=== PATIENT | male | born 1960 | race Caucasian/White ===

== ENCOUNTER → 2016-12-09 | Outpatient (CLI) | payer BC ==
[~2016-12-09] MED LIST: ASPI81TA28 PO; ATOR-22 PO; CLOP1TAB15 PO; COEN100C11 PO; CYAN10005 PO; FENO48TA9 PO; GLC/500 PO; GLIM1TAB2 PO; LISI-729 PO; LISI5TAB3 PO; METO50TA16 PO; RANI300T2 PO
--- NOTE | 2016-12-09 10:43 | DIAGNOSTIC IMAGING REPORT ---
LUMBAR ULTRASOUND SOFT TISSUE CLINICAL HISTORY: M54.5 Lumbar painM79.9 Soft tissue mass COMPARISON STUDY: Abdomen and pelvis CT 07/30/2016. FINDINGS: Real-time sonographic imaging of the lumbar region at the patient's area of interest was performed. No fluid collections or masses identified. Small linear echogenic area consistent with the site of prior incision. IMPRESSION: No sonographic abnormality within the lumbar region. Electronically signed by: Ajay Resendiz M.D. 12/09/2016 10:41 AM Dictated Date/Time: 12/09/2016 10:40 AM
== END | disposition home or self-care (01) ==
LOC: C.ULTR 10:03
PROVIDERS: ATTEND Physician Assistant Medical
DX: M54.5 Low back pain (principal); M79.9 Soft tissue disorder, unspecified

== ENCOUNTER → 2016-12-30 | Outpatient (CLI) | payer BC ==
[2016-12-30 12:20] LABS: HEMATOCRIT 41.6 % (42-52); MEAN CELL VOLUME 87.8 fL (80-100); MEAN CORPUSCULAR HEMOGLOBIN 29.7 pg (25-34); MEAN CORPUSCULAR HGB CONC 33.9 g/dl (32-36); MEAN PLATELET VOLUME 12.4 fL (7.4-10.4); PLATELET COUNT 178 K/uL (130-400); RED BLOOD COUNT 4.74 M/uL (4.7-6.1); WHITE BLOOD COUNT 8.24 K/uL (4.8-10.8)
[2016-12-30 12:44] LABS: ALB/GLOB RATIO 1.2 (0.9-2); ALKALINE PHOSPHATASE 83 U/L (45-117); ALT/SGPT 37 U/L (12-78); AST/SGOT 25 U/L (15-37); BLOOD UREA NITROGEN 17 mg/dl (7-18); BUN/CREATININE RATIO 13.1 (10-20); CARBON DIOXIDE 26 mmol/L (21-32); CHLORIDE 110 mmol/L (98-107); GLUCOSE 94 mg/dl (70-99); POTASSIUM 4.3 mmol/L (3.5-5.1); SODIUM 143 mmol/L (136-145)
[2016-12-30 12:53] LABS: ESTIMATED AVERAGE GLUCOSE 131 mg/dl; HA1C FLAG Normal (Normal)
[2016-12-30 12:56] LABS: CHOLESTEROL 146 mg/dl (0-200); CHOLESTEROL/HDL RATIO 3.7; HDL CHOLESTEROL 39 mg/dl; LDL CHOLESTEROL CALCULATED 69 mg/dl; TRIGLYCERIDES 189 mg/dl (0-150); VERY LOW DENSITY LIPOPROT CALC 38 mg/dl
== END | disposition home or self-care (01) ==
LOC: C.LAB1850 10:02
PROVIDERS: ATTEND Internal Medicine Cardiovascular Disease
DX: E11.9 Type 2 diabetes mellitus without complications (principal); I25.10 Atherosclerotic heart disease of native coronary artery without angina pectoris; E78.5 Hyperlipidemia, unspecified; I10 Essential (primary) hypertension; R00.2 Palpitations

== ENCOUNTER → 2017-01-22 | Outpatient (CLI) | payer BC ==
[~2017-01-22] VITALS: Ht 176.5 cm; Wt 104.1 kg
[~2017-01-22] MED LIST changes: -LISI5TAB3 PO
[2017-01-22 12:59] VITALS: BP 130/80; PULSE 81; Ht 176.5 cm; Wt 104.1 kg
== END | disposition home or self-care (01) ==
LOC: C.NEUR 12:15
PROVIDERS: ATTEND Physician Assistant
DX: G47.33 Obstructive sleep apnea (adult) (pediatric) (principal)

== ENCOUNTER → 2017-11-30 | Outpatient (CLI) | payer BC ==
[2017-11-30 09:35] LABS: HEMATOCRIT 41.8 % (42-52); HEMOGLOBIN 14.4 g/dL (14.0-18.0); MEAN CELL VOLUME 88.2 fL (80-100); MEAN CORPUSCULAR HEMOGLOBIN 30.4 pg (25-34); MEAN CORPUSCULAR HGB CONC 34.4 g/dl (32-36); MEAN PLATELET VOLUME 12.6 fL (7.4-10.4); PLATELET COUNT 167 K/uL (130-400); RED CELL DISTRIBUTION WIDTH CV 13.2 % (11.5-14.5); RED CELL DISTRIBUTION WIDTH SD 42.9 fL (36.4-46.3); WHITE BLOOD COUNT 8.12 K/uL (4.8-10.8)
[2017-11-30 09:49] LABS: HEMOGLOBIN A1C 6.5 % (4.5-5.6)
[2017-11-30 10:25] LABS: ALBUMIN 3.8 gm/dl (3.4-5.0); ALT/SGPT 37 U/L (12-78); BLOOD UREA NITROGEN 18 mg/dl (7-18); CALCIUM 8.9 mg/dl (8.5-10.1); CARBON DIOXIDE 22 mmol/L (21-32); CHOLESTEROL 109 mg/dl (0-200); CREATININE 1.12 mg/dl (0.60-1.40); GLUCOSE 90 mg/dl (70-99); SODIUM 141 mmol/L (136-145)
[2017-11-30 10:28] LABS: ALKALINE PHOSPHATASE 100 U/L (45-117); AST/SGOT 22 U/L (15-37); LDL CHOLESTEROL CALCULATED 42 mg/dl; TOTAL PROTEIN 7.2 gm/dl (6.4-8.2)
== END | disposition home or self-care (01) ==
LOC: C.LAB1850 08:27
PROVIDERS: ATTEND Internal Medicine Cardiovascular Disease
DX: E11.49 Type 2 diabetes mellitus with other diabetic neurological complication (principal); I25.10 Atherosclerotic heart disease of native coronary artery without angina pectoris

== ENCOUNTER → 2017-12-03 | Outpatient (CLI) | payer BC ==
--- NOTE | 2017-12-03 13:48 | DIAGNOSTIC IMAGING REPORT ---
CHEST 2 VIEWS ROUTINE HISTORY: 57 years-old Male R04.2 [id number] acute hemoptysis COMPARISON: Chest radiograph 01/18/2017 TECHNIQUE: PA and lateral views of the chest FINDINGS: Cardiomediastinal and hilar silhouettes are within normal limits. There is no pneumothorax, pleural effusion, focal airspace consolidation or overt pulmonary edema. The bones of the chest appear grossly intact. Degenerative changes are noted within the shoulders and spine. IMPRESSION: No acute process. The above report was generated using voice recognition software. It may contain grammatical, syntax or spelling errors. Electronically signed by: Will Frost M.D. 12/03/2017 1:47 PM Dictated Date/Time: 12/03/2017 1:46 PM
--- NOTE | 2017-12-03 13:53 | DIAGNOSTIC IMAGING REPORT ---
C-SPINE ROUTINE 4 OR 5 VIEWS CLINICAL HISTORY: 57 years-old Male presenting with M54.2 Neck painM25.512 Shoulder pain, [id number]. TECHNIQUE: Frontal, bilateral oblique, lateral, and open-mouth odontoid views of the cervical spine were obtained. COMPARISON: CT from 09/11/2014. FINDINGS: Straightening of normal cervical lordosis most pronounced in the upper cervical spine. Curvature is unchanged from prior. Vertebral bodies maintain normal height and alignment. Intervertebral disc height is preserved though disc osteophyte complexes are evident at C5-6 and C6-7. No significant posterior bony spurring. There may be mild osseous neural foraminal narrowing at C3-4, although this could be artifactual due to positioning. No radiographic evidence of fracture or subluxation. No prevertebral soft tissue swelling. Normal predental interval. Lateral masses of C1 articulate normally with C2. IMPRESSION: Mild degenerative changes most pronounced at C5-6 and C6-7. No radiographic evidence of acute osseous injury. Electronically signed by: Mark Porras M.D. 12/03/2017 1:52 PM Dictated Date/Time: 12/03/2017 1:50 PM
== END | disposition home or self-care (01) ==
LOC: C.RAD1850 13:24
PROVIDERS: ATTEND Physician Assistant Medical
DX: M25.512 Pain in left shoulder (principal); M54.2 Cervicalgia; R04.2 Hemoptysis

== ENCOUNTER 2018-04-13 18:00 | Emergency (ER) | payer BC ==
[~2018-04-13] VITALS: Ht 175.3 cm; Wt 105.4 kg
[2018-04-13 18:05] VITALS: Ht 175.3 cm; Wt 105.4 kg
[2018-04-13 18:15] VITALS: O2SAT 92
[2018-04-13] MEDS ORDERED: ASPIRIN 81 MG CHEW PO STA (18:19)
[2018-04-13] MEDS ORDERED: SODIUM CHLORIDE 0.9% 1000ML 1,000 ML IV STA (18:19)
--- NOTE | 2018-04-13 18:21 | EMERGENCY ROOM VISIT NOTE ---
History Report prepared by Joellen: Ld Lawson Under the Supervision of: Dr. Nehemias Dixon First contact with patient: 18:11 Chief Complaint: HYPERGLYCEMIA Stated Complaint: HYPERGLYCEMIA Nursing Triage Summary: pt reports high blood sugar started at 1700 today was into to see pcp given 2 steroids injections in spine . pt is noninsulin dependent.feels dizzy sweaty, eyes watering intermittent chest pain History of Present Illness The patient is a 57 year old male who presents to the Emergency Room with complaints of sudden onset and constant chest pain and shortness of breath that began about 1 hour ago. The patient's at bedside states that he received steroid injections in his cervical spine this morning. About 1 hour ago the patient's blood sugar jumped up to 438. He then became "dizzy, weak, and clammy. " He also complains of the chest pain on the left side and some shortness of breath. He is not nauseous. The patient is a diabetic but is not on insulin. He is on Metformin and glimepiride. The patient does have a history of myocardial infarction in 2008, 9 years ago. He denies that this pain feels similar. Does states that about 2 days ago at work he did drop a box on his anterior chest given a little bit of similar pain then. Source of History: patient Onset: 1 hour ago Position: chest Quality: other (SOB, dizzy, clammy) Timing: constant, other (sudden onset 1 hour ago) Associated Symptoms: + diaphoresis, + chest pain, + SOB, + weakness, No nausea Review of Systems See HPI for pertinent positives and negatives. A total of ten systems were reviewed and were otherwise negative. Past Medical & Surgical Medical Problems: (1) AC MYOCARD INFARCT,INFEROLATERAL WALL,SUBSEQ EPIS (2) CHRONIC SINUSITIS NOS (3) CORONARY ATHEROSCLEROSIS OF [place] CORONARY VESSEL (4) DIAB JACKIE WO COMPL, TYPE II OR UNSPEC TYPE, NOT UNCNTRLD (5) ESOPHAGEAL REFLUX (6) HYPERLIPIDEMIA NEC/NOS (7) HYPERTENSION NOS (8) IRRITABLE BOWEL SYNDROME (9) LUMB/LUMBOSAC DISC DEGEN (10) PERCUTANEOUS TRANSLUM CORON ANGIOPLASTY STATUS (11) VENTRICULAR FIBRILLATION Surgical Problems: (1) History of heart artery stent Family History Cancer Diabetes mellitus Heart disease Hypertension Social History Smoking Status: Never Smoker Alcohol Use: none Marital Status: Housing Status: lives with significant other Occupation Status: unemployed Current/Historical Medications Scheduled Aspirin (Aspirin Ec), 81 MG PO QAM Atorvastatin (Lipitor), 20 MG PO QPM Clopidogrel (Plavix), 75 MG PO QAM Coenzyme Q10 (Ubidecarenone) (Coq-10), 100 MG PO DAILY Cyanocobalamin (Vitamin B-12), 1,000 MCG PO DAILY Fenofibrate (Tricor), 48 MG PO BID Glimepiride (Glimepiride), 1 MG PO QAM Lisinopril (Zestril), 5 MG PO QAM Metformin Hcl (Glucophage), 2 TAB PO BID Metoprolol Tartrate (Lopressor) (Lopressor), 50 MG PO QPM Metoprolol Tartrate (Lopressor) (Lopressor), 100 MG PO QAM Ranitidine Hcl (Zantac), 300 MG PO BID Allergies Coded Allergies: Iodinated Contrast Media (Verified Allergy, Unknown, HIVES, 04/13/18) Physical Exam Vital Signs Date Time Temp Pulse Resp B/P (MAP) Pulse Ox O2 Delivery O2 Flow Rate FiO2 04/13/18 21:07 36.8 80 18 139/70 95 Room Air 04/13/18 19:44 88 18 140/72 95 Room Air 04/13/18 18:28 86 04/13/18 18:15 Room Air 04/13/18 18:15 92 Room Air 04/13/18 18:05 36.7 95 18 166/91 96 Room Air Physical Exam GENERAL: fatigued appearing, in no distress HENT: Normocephalic, atraumatic. Oropharynx unremarkable. EYES: Normal conjunctiva. Sclera non-icteric. NECK: Supple. No nuchal rigidity. RESPIRATORY: Clear to auscultation. No wheezes. Normal respiratory effort. CHEST: There is minimal left chest wall tenderness to palpation. CARDIAC: Normal rate. Normal rhythm. Extremities warm and well perfused. GI: Soft, non-distended. No tenderness to palpation. No rebound or guarding. No masses. RECTAL: Deferred. MUSCULOSKELETAL: Atraumatic. Chest examination reveals no tenderness. LOWER EXTREMITIES: Calves are equal size bilaterally and non-tender. No edema NEURO: Normal sensorium. No sensory or motor deficits noted. SKIN: Slightly diaphoretic. No rash or jaundice noted. Medical Decision & Procedures ER Provider Diagnostic Interpretation: Radiology results as stated below per my review and radiologist interpretation: CHEST ONE VIEW PORTABLE HISTORY: Atypical CHEST PAIN COMPARISON: Chest 12/03/2017. FINDINGS: The lungs are clear. Cardiac silhouette is normal in size. No pleural effusions. No pneumothorax. IMPRESSION: No acute process. Electronically signed by: Ajay Resendiz M.D. 04/13/2018 6:39 PM Dictated Date/Time: 04/13/2018 6:37 PM Laboratory Results 04/13/18 18:38 Red Blood Count 4.79, Mean Corpuscular Volume 88.1, Mean Corpuscular Hemoglobin 30.5, Mean Corpuscular Hemoglobin Concent 34.6, Mean Platelet Volume 12.9, Neutrophils (%) (Auto) 92.4, Lymphocytes (%) (Auto) 6.9, Monocytes (%) (Auto) 0.5, Eosinophils (%) (Auto) 0.0, Basophils (%) (Auto) 0.0, Neutrophils # (Auto) 7.87, Lymphocytes # (Auto) 0.59, Monocytes # (Auto) 0.04, Eosinophils # (Auto) 0.00, Basophils # (Auto) 0.00 04/13/18 18:38 Test 04/13/18 18:38 04/13/18 19:47 04/13/18 19:49 04/13/18 21:06 White Blood Count 8.52 K/uL (4.8-10.8) Red Blood Count 4.79 M/uL (4.7-6.1) Hemoglobin 14.6 g/dL (14.0-18.0) Hematocrit 42.2 % (42-52) Mean Corpuscular Volume 88.1 fL (80-100) Mean Corpuscular Hemoglobin 30.5 pg (25-34) Mean Corpuscular Hemoglobin Concent 34.6 g/dl (32-36) Platelet Count 161 K/uL (130-400) Mean Platelet Volume 12.9 fL (7.4-10.4) Neutrophils (%) (Auto) 92.4 % Lymphocytes (%) (Auto) 6.9 % Monocytes (%) (Auto) 0.5 % Eosinophils (%) (Auto) 0.0 % Basophils (%) (Auto) 0.0 % Neutrophils # (Auto) 7.87 K/uL (1.4-6.5) Lymphocytes # (Auto) 0.59 K/uL (1.2-3.4) Monocytes # (Auto) 0.04 K/uL (0.11-0.59) Eosinophils # (Auto) 0.00 K/uL (0-0.5) Basophils # (Auto) 0.00 K/uL (0-0.2) RDW Standard Deviation 42.9 fL (36.4-46.3) RDW Coefficient of Variation 13.3 % (11.5-14.5) Immature Granulocyte % (Auto) 0.2 % Immature Granulocyte # (Auto) 0.02 K/uL (0.00-0.02) Anion Gap 13.0 mmol/L (3-11) Est Creatinine Clear Calc Drug Dose 64.7 ml/min Estimated GFR () 59.1 Estimated GFR (Non- 51.0 BUN/Creatinine Ratio 12.3 (10-20) Calcium Level 9.6 mg/dl (8.5-10.1) Total Bilirubin 0.3 mg/dl (0.2-1) Direct Bilirubin 0.1 mg/dl (0-0.2) Aspartate Amino Transf (AST/SGOT) 18 U/L (15-37) Alanine Aminotransferase (ALT/SGPT) 33 U/L (12-78) Alkaline Phosphatase 120 U/L (45-117) Total Protein 7.5 gm/dl (6.4-8.2) Albumin 3.9 gm/dl (3.4-5.0) Lipase 196 U/L (73-393) Beta-Hydroxybutyric Acid mg/dL (0.2-2.81) Bedside Glucose 273 mg/dl (70-99) Urine Color YELLOW Urine Appearance CLEAR (CLEAR) Urine pH 5.0 (4.5-7.5) Urine Specific [place] 1.031 (1.000-1.030) Urine Protein NEG (NEG) Urine Glucose (UA) 3+ (NEG) Urine Ketones NEG (NEG) Urine Occult Blood NEG (NEG) Urine Nitrite NEG (NEG) Urine Bilirubin NEG (NEG) Urine Urobilinogen NEG (NEG) Urine Leukocyte Esterase NEG (NEG) Troponin I < 0.015 ng/ml (0-0.045) Laboratory results reviewed by me Medications Administered Medications (Trade) Dose Ordered Sig/Jazmín Route Start Time Stop Time Status Last Admin Dose Admin Sodium Chloride 1,000 ml @ 999 mls/hr Q1H1M STAT IV 04/13/18 18:19 04/13/18 19:19 DC 04/13/18 18:51 999 MLS/HR Aspirin (Aspirin Chew) 324 mg NOW STAT PO 04/13/18 18:19 04/13/18 18:21 DC 04/13/18 18:50 324 MG Sodium Chloride 1,000 ml @ 999 mls/hr Q1H1M ONCE IV 04/13/18 19:28 04/13/18 20:28 DC 04/13/18 19:34 999 MLS/HR ECG Per My Interpretation Indication: chest pain, weakness, other (Dizzy) Rate (beats per minute): 88 Rhythm: normal sinus Findings: T-wave inversion (AvL), other (Normal axis, normal intervals, no LAURIE) Comparison ECG Date: 01/18/2017 Change: t-wave inversion is new. REPEAT EKG: Repeat ekg shows NSR at 78 bpm. Normal axis, normal intervals, TWI have resolved from previous. ED Course 1813: The patient was evaluated in room A12A. A complete history and physical exam was performed. 1818: Ordered Aspirin 324 mg PO, Sodium Chloride 1000 mL @ 999 mL/hr IV. 2135: I reevaluated the patient. Discussed results and discharge instructions: He verbalized understanding and agreement. The patient was educated about the findings as listed above. All questions were answered and the patient expressed understanding with the treatment. Return instructions were outlined and the patient was discharged in stable condition. Medical Decision Differential diagnosis: Etiologies such as cardiac ischemia, aortic dissection, pulmonary embolism, pneumonia, pneumothorax, musculoskeletal, pericarditis, myocarditis, esophageal rupture, gastrointestinal, metabolic, infection, hypo/hyperglycemia, electrolyte abnormalities, intracerebral event, toxicologic, neurologic, as well as others were entertained. Patient presents complaining of weakness and dyspnea with diaphoresis and central chest discomfort. He has a cardiac history and diabetic history. Hyperglycemia likely secondary to steroid injection today. Glucose improving compared to home reading after taking additional of his glimepiride. Given additional IV fluid here with improvement. EKG without significant change. Initial troponin negative. Appears to have an mild acute kidney injury. Did receive aspirin here. Resolution of symptoms and improving glucose. Do not believe this represents dissection or PE. Discussed with patient risks and benefits for further cardiac evaluation and rule out. Patient states this feels different than prior NH and thinks it is muscular and states he did suffer a box falling on him several days ago and believes that is what caused this pain in his chest. Discussed with him that given his moderate risk would generally recommend admission overnight for serial troponins and all patient states he did not want to do that. Fluid rehydrated advised to follow-up with his regular doctor regarding kidney function. Both patient and knows risks and benefits of discharge and agreed to a delta troponin and EKG which was completed and negative. 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 He should also discuss with his neurosurgeon who did his cervical steroid injection his reaction. They acknowledged the risk of discharge and acknowledged the return criteria. Medication Reconcilliation Current Medication List: was personally reviewed by me Blood Pressure Screening Patient's blood pressure: Elevated blood pressure Blood pressure disposition: Referred to PCP Impression Primary Impression: Hyperglycemia due to type 2 diabetes mellitus Additional Impressions: Chest pain Weakness Scribe Attestation The scribe's documentation has been prepared under my direction and personally reviewed by me in its entirety. I confirm that the note above accurately reflects all work, treatment, procedures, and medical decision making performed by me. Departure Information Dispostion Home / Self-Care Referrals Andrew Bingham M.D. (PCP) Patient Instructions My [facility] Additional Instructions Please continue to maintain hydration and monitor blood sugar at home. If at any time you feel new symptoms or worsening symptoms including but not limited to chest pain shortness of breath or weakness please read present for reevaluation. Would recommend close follow-up in the next 1-2 days with your primary care doctor. We will also check in both with your neurosurgeon and your certified ski patroller as well to make them aware. Please have your regular physician recheck your kidney function as well as it was slightly worse than your baseline in November today. Problem Qualifiers Primary Impression: Hyperglycemia due to type 2 diabetes mellitus Diabetes mellitus longterm insulin use: without longterm use Qualified Codes: E11.65 - Type 2 diabetes mellitus with hyperglycemia Additional Impressions: Chest pain Chest pain type: unspecified Qualified Codes: R07.9 - Chest pain, unspecified
--- NOTE | 2018-04-13 18:40 | DIAGNOSTIC IMAGING REPORT ---
CHEST ONE VIEW PORTABLE HISTORY: Atypical CHEST PAIN COMPARISON: Chest 12/03/2017. FINDINGS: The lungs are clear. Cardiac silhouette is normal in size. No pleural effusions. No pneumothorax. IMPRESSION: No acute process. Electronically signed by: Ajay Resendiz M.D. 04/13/2018 6:39 PM Dictated Date/Time: 04/13/2018 6:37 PM
[2018-04-13 18:48] LABS: HEMATOCRIT 42.2 % (42-52); HEMOGLOBIN 14.6 g/dL (14.0-18.0); IG# 0.02 K/uL (0.00-0.02); LYMPH % 6.9 %; LYMPH ABS # 0.59 K/uL (1.2-3.4); MEAN CELL VOLUME 88.1 fL (80-100); MEAN CORPUSCULAR HEMOGLOBIN 30.5 pg (25-34); MEAN CORPUSCULAR HGB CONC 34.6 g/dl (32-36); MEAN PLATELET VOLUME 12.9 fL (7.4-10.4); MONO % 0.5 %; MONO ABS # 0.04 K/uL (0.11-0.59); NEUT % 92.4 %; NEUT ABS # 7.87 K/uL (1.4-6.5); PLATELET COUNT 161 K/uL (130-400); RED CELL DISTRIBUTION WIDTH CV 13.3 % (11.5-14.5); RED CELL DISTRIBUTION WIDTH SD 42.9 fL (36.4-46.3); WHITE BLOOD COUNT 8.52 K/uL (4.8-10.8)
[2018-04-13 19:20] LABS: ALBUMIN 3.9 gm/dl (3.4-5.0); ALKALINE PHOSPHATASE 120 U/L (45-117); ALT/SGPT 33 U/L (12-78); AST/SGOT 18 U/L (15-37); BLOOD UREA NITROGEN 18 mg/dl (7-18); CALCIUM 9.6 mg/dl (8.5-10.1); CARBON DIOXIDE 18 mmol/L (21-32); CREATININE 1.49 mg/dl (0.60-1.40); GLUCOSE 366 mg/dl (70-99); LIPASE 196 U/L (73-393); POTASSIUM 4.5 mmol/L (3.5-5.1); SODIUM 137 mmol/L (136-145); TOTAL PROTEIN 7.5 gm/dl (6.4-8.2)
[2018-04-13] MEDS ORDERED: SODIUM CHLORIDE 0.9% 1000ML 1,000 ML IV ONE (19:28)
[2018-04-13 21:07] VITALS: BP 139/70; PULSE 80; TEMP 36.8; O2SAT 95
== END 2018-04-13 21:44 | disposition home or self-care (01) ==
LOC: C.EDB 18:01 → C.EDA 21:44
DX: E11.65 Type 2 diabetes mellitus with hyperglycemia (principal); R07.9 Chest pain, unspecified; R53.1 Weakness; I25.2 Old myocardial infarction; I25.10 Atherosclerotic heart disease of native coronary artery without angina pectoris; K21.9 Gastro-esophageal reflux disease without esophagitis; E78.5 Hyperlipidemia, unspecified; I10 Essential (primary) hypertension; K58.9 Irritable bowel syndrome, unspecified; Z79.82 Long term (current) use of aspirin; Z79.02 Long term (current) use of antithrombotics/antiplatelets; Z79.84 Long term (current) use of oral hypoglycemic drugs; Z79.899 Other long term (current) drug therapy; Z91.041 Radiographic dye allergy status

== ENCOUNTER 2018-09-19 11:05 | Inpatient (IN) ==
[2018-09-19] MEDS ORDERED: cefTRIAXone SODIUM 1,000 MG/50 ML BAG IV STA (11:35)
[2018-09-19] MEDS ORDERED: KETOROLAC 30 MG/ML VIAL IV STA (11:35)
[2018-09-19] MEDS ORDERED: ALBUT/IPRATROP 3MG/0.5MG NEB 3 ML VIAL NEB STA (11:42)
[2018-09-19] MEDS ORDERED: SODIUM CHLORIDE 0.9% 1000ML 1,000 ML IV SCH (11:45)
[2018-09-19 12:02] LABS: Basophils # (auto) 0.01 K/uL (0-0.2); Basophils % (auto) 0.2 %; Hematocrit (blood only) 37.1 % (42-52); Hemoglobin 12.6 g/dL (14.0-18.0); Immature Granulocytes # (auto) 0.01 K/uL (0.00-0.02); Immature Granulocytes % (auto) 0.2 %; Lymphocytes # (auto) 0.59 K/uL (1.2-3.4); Lymphocytes % (auto) 13.2 %; Mean Corpuscular Volume 87.1 fL (80-100); Mean Platelet Volume 11.2 fL (7.4-10.4); Monocytes # (auto) 0.32 K/uL (0.11-0.59); Monocytes % (auto) 7.1 %; Neutrophils # (auto) 3.55 K/uL (1.4-6.5); Neutrophils % (auto) 79.3 %; Platelet Count 133 K/uL (130-400); RDW Coefficient of Variation 13.1 % (11.5-14.5); RDW Standard Deviation 42.2 fL (36.4-46.3); Red Blood Count 4.26 M/uL (4.7-6.1); White Blood Count 4.48 K/uL (4.8-10.8)
--- NOTE | 2018-09-19 12:11 | XRay Report ---
XR chest 1V portable CLINICAL HISTORY: flu, increasing sob, fever COMPARISON STUDY: Chest radiograph September 15, 2018. FINDINGS: Lung volumes are normal. There is a possible small left pleural effusion. Right infrahilar consolidation has developed. Left lower lung airspace opacity has resolved as well. There may be pleu ral vascular congestion. There is no pneumothorax. Cardiomediastinal silhouette is stable. IMPRESSION: 1. Interval development of bibasilar airspace opacities which favor pneumonia. 2. Pulmonary vascular congestion. 3. Possible small left pleural effusion. Electronically signed by: Erich Ramirez M.D. 09/19/2018 12:09 PM
[2018-09-19 12:17] LABS: Alanine Aminotransferase 33 U/L (12-78); Albumin Level 2.9 gm/dl (3.4-5.0); Aspartate Aminotransferase 36 U/L (15-37); BUN Creatinine Ratio 8.1 (10-20); Blood Urea Nitrogen 9 mg/dl (7-18); Calcium 8.6 mg/dl (8.5-10.1); Carbon Dioxide 26 mmol/L (21-32); Chloride 101 mmol/L (98-107); Est GFR (African American) 86.6; Est GFR (Non-African American) 74.7; Glucose 123 mg/dl (70-99); Potassium 3.7 mmol/L (3.5-5.1); Sodium 136 mmol/L (136-145)
[2018-09-19 12:22] LABS: Albumin Globulin Ratio 0.7 (0.9-2); Alkaline Phosphatase 73 U/L (45-117); Bilirubin,Total 0.7 mg/dl (0.2-1); Globulin 4.3 gm/dl (2.5-4.0); Total Protein 7.2 gm/dl (6.4-8.2); Troponin I < 0.015 ng/ml (0-0.045)
--- NOTE | 2018-09-19 13:42 | Emergency Department Note ---
Entered by Beck Quiñonez acting as a scribe for Kory Geiger DO History of Present Illness General Chief complaint: Flu Like Symptoms Stated complaint: FLU Time Seen by Provider: 09/19/18 11:21 Source: patient History of Present Illness Onset (ago): day(s) 5 Location: head and chest (lungs) Pain Consistency: + other (persistent) Quality: + other (multiple flu symptoms) Relieved By: not by medication (Tylenol) Associated symptoms: + cough, + fever/chills, + headaches and + shortness of breath The patient is a 58 year old male diagnosed with the flu four days ago who presents to the Emergency Room with complaints of multiple persistent flu symptoms for the past 5 days. His symptoms include a productive cough, body aches, fevers, headaches, and some shortness of breath. He reports that his symptoms have not been improving. He states that he last took Tylenol at 04:00 this morning, which did not improve his symptoms. The patient notes that his was recently diagnosed with pneumonia. He states that he did not receive a flu shot. Home Medications Home Medications Medication Instructions Recorded Confirmed Type aspirin 81 mg PO QAM 09/15/18 09/19/18 History atorvastatin 20 mg PO HS 09/15/18 09/19/18 History cholecalciferol (vitamin D3) 50,000 units PO WK 09/15/18 09/19/18 History clopidogrel 75 mg PO QAM 09/15/18 09/19/18 History coenzyme Q10 [CoQ-10] 100 mg PO QAM 09/15/18 09/19/18 History cyanocobalamin (vitamin B-12) 1,000 mcg PO QAM 09/15/18 09/19/18 History [Vitamin B-12] fenofibrate nanocrystallized 48 mg PO BID 09/15/18 09/19/18 History glimepiride 1 mg PO QAM 09/15/18 09/19/18 History lisinopril 20 mg PO QAM 09/15/18 09/19/18 History metformin 1,000 mg PO BIDM 09/15/18 09/19/18 History metoprolol tartrate 100 mg PO BID 09/15/18 09/19/18 History ondansetron 4 mg PO Q6H PRN #20 tab 09/15/18 09/19/18 Rx ranitidine HCl 300 mg PO BID 09/15/18 09/19/18 History acetaminophen [Tylenol Extra 1,000 mg PO Q6H PRN 09/19/18 09/19/18 History Strength] Allergies Allergy/AdvReac Type Severity Reaction Status Date / Time Iodinated Contrast- Oral and Allergy Unknown HIVES Verified 09/19/18 11:28 IV Dye Past Med/Surg History Medical History Diabetes Hypertension Kidney stones Myocardial infarction Surgical History History of heart artery stent History of knee surgery History of spinal fusion Family History Other Diabetes Gallbladder disease Heart disease Hypertension Kidney disease Social History marital status: Current Living Situation: Spouse and Family current occupational status: employed Feels Safe at Home: Yes Smoking Status: Never smoker Hx Alcohol Use: No Preferred Language: Moroccan Review of Systems See HPI for pertinent positives & negatives. and A total of 10 systems reviewed and were otherwise negative Physical Exam Vital Signs Vital Signs - 24 hr 09/19/18 11:06 09/19/18 12:34 Temperature 37.1 C Temperature Source Oral Sepsis Recent Fever Within 48 Hours No Sepsis New/Unexplained Change in Mental Status No Sepsis Action Taken by Nursing No Action Required Pulse Rate 93 H Pulse Rate [Right Finger] 89 Pulse Rhythm [Right Finger] Regular Pulse Strength [Right Finger] Normal Respiratory Rate 18 20 Respiratory Effort / Characteristics Non-Labored Respiratory Depth Normal Normal Respiratory Pattern Regular Blood Pressure 158/91 H Blood Pressure [Right Arm] 132/63 Blood Pressure Mean 113 Blood Pressure Mean [Right Arm] 86 Blood Pressure Position Sitting Pulse Oximetry 95 94 Oxygen Delivery Method Room Air Room Air CONSTITUTIONAL/VITAL SIGNS: Reviewed / noted above. GENERAL: Non-toxic in appearance. INTEGUMENTARY: Warm, dry, and [place]. HEAD: Normocephalic. EYES: without scleral icterus or trauma. ENT/OROPHARYNX: clear and moist. LYMPHADENOPATHY/NECK: Is supple without lymphadenopathy or meningismus. RESPIRATORY: Bilateral wheezing and rhonchi. CARDIOVASCULAR: Regular rate and rhythm. GI/ABDOMEN: Soft and nontender. No organomegaly or pulsatile mass. No rebound or guarding. Normal bowel sounds. EXTREMITIES: Warm and well perfused. BACK: No CVA tenderness. NEUROLOGICAL: Intact without focal deficits. PSYCHIATRIC: normal affect. MUSCULOSKELETAL: Normally developed with good muscle tone. Course 1130: Past medical records reviewed. The patient was evaluated in room C3, and a complete history and physical examination were performed. 1340: I consulted Dr. Dietz [facility] Hospitalist. She will reevaluate the patient for hospitalization. Consultations Consultation #1: I consulted Dr. Dietz [facility] Hospitalist. She will reevaluate the patient for hospitalization. Time: 13:40 Administered Medications Discontinued Medications Albuterol (Duoneb) 3 ml NEB NOW STA Stop: 09/19/18 11:43 Last Admin: 09/19/18 12:00 Dose: 3 ml Ceftriaxone Sodium (Rocephin) 1,000 mg in 50 mls @ 100 mls/hr IV NOW STA Stop: 09/19/18 12:04 Last Infusion: 09/19/18 12:37 Dose: Admin: 09/19/18 12:00 Dose: 100 mls/hr Sodium Chloride (Nss 1000ml) 1,000 mls @ 999 mls/hr IV .Q1H1M [place] Stop: 09/19/18 12:45 Last Infusion: 09/19/18 13:06 Dose: Admin: 09/19/18 12:01 Dose: 999 mls/hr Ketorolac Tromethamine (Toradol) 30 mg IV NOW STA Stop: 09/19/18 11:36 Last Admin: 09/19/18 12:00 Dose: 30 mg Medical Decision Making Differential Diagnosis Differential diagnosis: Etiologies such as infections, reactive airway disease, pneumonia, pneumothorax , COPD, CHF, cardiac ischemia, pulmonary embolism, musculoskeletal, gastrointestinal, as well as others were entertained. Medical Records Attestation: I reviewed the patient's medical records. Home Medications Current Medication List: was personally reviewed by me Laboratory Data Attestation: I reviewed the patient's lab results. Result diagrams: 09/19/18 11:44 09/19/18 11:44 Lab Results 09/19/18 09/19/18 Range/Units 11:44 11:44 WBC 4.48 L (4.8-10.8) K/uL RBC 4.26 L (4.7-6.1) M/uL Hgb 12.6 L (14.0-18.0) g/dL Hct 37.1 L (42-52) % MCV 87.1 (80-100) fL MCH 29.6 (25-34) pg MCHC 34.0 (32-36) g/dL RDW Std Deviation 42.2 (36.4-46.3) fL RDW Coeff of Abigail 13.1 (11.5-14.5) % Plt Count 133 (130-400) K/uL MPV 11.2 H (7.4-10.4) fL Immature Gran % (Auto) 0.2 % Neut % (Auto) 79.3 % Lymph % (Auto) 13.2 % Graham % (Auto) 7.1 % Eos % (Auto) 0.0 % Baso % (Auto) 0.2 % Immature Gran # (Auto) 0.01 (0.00-0.02) K/uL Neut # (Auto) 3.55 (1.4-6.5) K/uL Lymph # (Auto) 0.59 L (1.2-3.4) K/uL Graham # (Auto) 0.32 (0.11-0.59) K/uL Eos # (Auto) 0.00 (0-0.5) K/uL Baso # (Auto) 0.01 (0-0.2) K/uL Sodium 136 (136-145) mmol/L Potassium 3.7 (3.5-5.1) mmol/L Chloride 101 (98-107) mmol/L Carbon Dioxide 26 (21-32) mmol/L Anion Gap 9.0 (3-11) BUN 9 (7-18) mg/dl Creatinine 1.08 (0.6-1.4) mg/dl Est Cr Clr Drug Dosing Not Reportable Est GFR ( Amer) 86.6 Est GFR (Non-Af Amer) 74.7 BUN/Creatinine Ratio 8.1 L (10-20) Glucose 123 H (70-99) mg/dl Calcium 8.6 (8.5-10.1) mg/dl Total Bilirubin 0.7 (0.2-1) mg/dl AST 36 (15-37) U/L ALT 33 (12-78) U/L Alkaline Phosphatase 73 (45-117) U/L Troponin I < 0.015 (0-0.045) ng/ml Total Protein 7.2 (6.4-8.2) gm/dl Albumin 2.9 L (3.4-5.0) gm/dl Globulin 4.3 H (2.5-4.0) gm/dl Albumin/Globulin Ratio 0.7 L (0.9-2) Imaging Data Radiologist's Impression: Radiology results as stated below per my review and the radiologist's interpretation: XR chest 1V portable CLINICAL HISTORY: flu, increasing sob, fever COMPARISON STUDY: Chest radiograph September 15, 2018. FINDINGS: Lung volumes are normal. There is a possible small left pleural effusion. Right infrahilar consolidation has developed. Left lower lung airspace opacity has resolved as well. There may be pleural vascular congestion. There is no pneumothorax. Cardiomediastinal silhouette is stable. IMPRESSION: 1. Interval development of bibasilar airspace opacities which favor pneumonia. 2. Pulmonary vascular congestion. 3. Possible small left pleural effusion. Electronically signed by: Erich Ramirez M.D. 09/19/2018 12:09 PM Blood Pressure Blood Pressure Findings: Normal blood pressure Blood Pressure Disposition: did not require urgent referral MDM Narrative This is a 58-year-old male who presents to the ED with a chief complaint of flulike illness. The patient was diagnosed with influenza A 4 days ago. Since that time his symptoms have worsened. The patient reports increasing shortness of breath and a productive cough. A chest x-ray today reveals bibasilar opacities concerning for pneumonia. Radiologist also reports some congestive change changes. His lung exam reveals some wheezes and rhonchi. Symptoms are more consistent with a an infection rather than heart failure. CBC and complete metabolic panel were unremarkable. The patient was treated with a DuoNeb treatment, IV Toradol, IV Rocephin, IV fluids and IV Zithromax. The patient does not feel comfortable going home. I spoke with the hospitalist, who will see the patient for further inpatient evaluation and care. Impression & Plan Pneumonia, Influenza A, Weakness Discharge Plan Visit Data Chief Complaint: Flu Like Symptoms Stated Complaint: FLU ED Provider: Kory Geiger Discharge Problem: Pneumonia, Influenza A, Weakness Patient Disposition: Being Evaluated by Hospitalist Forms Stand Alone Forms: My [facility] [employer] Prescriptions Prescriptions: No Action atorvastatin 20 mg tablet 20 mg PO HS RF: 0 metoprolol tartrate 100 mg tablet 100 mg PO BID RF: 0 ranitidine HCl 300 mg tablet 300 mg PO BID RF: 0 lisinopril 20 mg tablet 20 mg PO QAM RF: 0 clopidogrel 75 mg tablet 75 mg PO QAM RF: 0 aspirin 81 mg Tablet,Delayed Release (Dr/Ec) 81 mg PO QAM RF: 0 glimepiride 1 mg tablet 1 mg PO QAM RF: 0 metformin 500 mg tablet extended release 24 hr 1,000 mg PO BIDM RF: 0 coenzyme Q10 [CoQ-10] 100 mg Capsule 100 mg PO QAM RF: 0 fenofibrate nanocrystallized 48 mg tablet 48 mg PO BID RF: 0 cholecalciferol (vitamin D3) 50,000 unit capsule 50,000 units PO WK RF: 0 cyanocobalamin (vitamin B-12) [Vitamin B-12] 1,000 mcg Tablet 1,000 mcg PO QAM RF: 0 ondansetron 4 mg tablet,disintegrating 4 mg PO Q6H PRN (Reason: nausea and vomiting) Qty: 20 RF: 0 acetaminophen [Tylenol Extra Strength] 500 mg Tablet 1,000 mg PO Q6H PRN (Reason: pain/fever) RF: 0 Referrals Referrals: Andrew Bingham MD [Primary Care Provider] - The scribe's documentation has been prepared under my direction and personally reviewed by me in its entirety. I confirm that the note above accurately reflects all work, treatment, procedures, and medical decision making performed by me.
[2018-09-19] MEDS ORDERED: AZITHROMYCIN 500 MG/255 ML BAG IV SCH (13:45)
--- NOTE | 2018-09-19 14:42 | History & Physical Report ---
Date of Service September 19, 2018 Assessment & Plan (1) Pneumonia: Patient with recent diagnosis of influenza A presenting with worsening pulmonary symptoms, productive cough, fever. Chest x-ray suggestive of bibasilar airspace opacity favoring pneumonia. Patient presently afebrile, hemodynamically stable, no respiratory distress, saturating 94% on room air. * Admit to medical floor * Follow-up blood cultures * Check sputum culture, Legionella, pro-calcitonin, BNP * Azithromycin and ceftriaxone for treatment of community acquired pneumonia * Albuterol neb every 6 hours * Prednisone 40 mg p.o. daily * Tessalon Perles 3 times daily * Incentive spirometry every 2 hours while awake * Tylenol as needed for pain and fever * Supplemental oxygen as needed * PA and lateral x-ray in the morning * Closely monitor * (2) Influenza A: Patient positive for influenza A on 09/15/18. No Tamiflu administered. Now out of the window for treatment. * Droplet precautions * Treatment of pneumonia as above * (3) CAD (coronary artery disease): Patient with history of CAD status post stent placement in 2008. Presently chest pain-free. No concern for myocardial ischemia * Check EKG for baseline * Continue aspirin, Plavix, atorvastatin, fenofibrate, lisinopril, metoprolol * Continue to monitor * (4) Diabetes: Well-controlled on glimepiride and metformin. Last hemoglobin A1c 6.4 on 07/20/18. * Will hold oral agents while inpatient * Lantus 7 units twice daily * Insulin sliding scale * Continue to monitor * (5) Hypertension: Blood pressure presently controlled * Continue metoprolol, lisinopril * (6) GERD (gastroesophageal reflux disease): Chronic. Well-controlled * Continue ranitidine twice daily F/E/N: Normal saline solution at 125 mL/h x 2 L, monitor electrolytes and replete as needed, consistent carb/heart healthy diet as tolerated, continue B12 supplement and co-Q10 Prophylaxis: Lovenox, continue home ranitidine Code: Full per discussion with patient Dispo: Admit to medical floor History of Present Illness Chief Complaint: Shortness of breath Primary Care Provider: Andrew Bingham MD Patient is a 58-year-old male with history of diabetes, hypertension, CAD status post stent in 2008 presenting with worsening respiratory complaints. Patient was seen in the ER on 09/15/18 complaining of 2 days of flulike symptoms to include fever, body aches, cough as well as nausea and diarrhea. He tested positive for influenza A at that time. He was discharged home with an albuterol inhaler and Zofran as needed. Patient did not take Tamiflu. Patient did not receive a flu vaccine this year. + Sick contactsson and with the flu as well. No recent travel. Patient reports that his symptoms have progressed since then. Still with daily fevers, last one this morning recorded at 101.6. Patient also reports worsening shortness of breath, wheeze, cough productive for purulent green sputum as well as body aches. Patient is still having watery diarrhea as well. He reports decreased oral intake as well as decreased urine output. He states he is unable to take a deep breath and has some mild chest pain associated with his cough. Patient denies palpitations, dizziness, presyncope, abdominal pain, dysuria, numbness/weakness. ER course: Albuterol neb, azithromycin 500 mg, ceftriaxone 1 g, Toradol Allergies Allergy/AdvReac Type Severity Reaction Status Date / Time Iodinated Contrast- Oral and Allergy Unknown HIVES Verified 09/19/18 11:28 IV Dye Home Medications Home Medications Medication Instructions Recorded Confirmed Type aspirin 81 mg PO QAM 09/15/18 09/19/18 History atorvastatin 20 mg PO HS 09/15/18 09/19/18 History cholecalciferol (vitamin D3) 50,000 units PO WK 09/15/18 09/19/18 History clopidogrel 75 mg PO QAM 09/15/18 09/19/18 History coenzyme Q10 [CoQ-10] 100 mg PO QAM 09/15/18 09/19/18 History cyanocobalamin (vitamin B-12) 1,000 mcg PO QAM 09/15/18 09/19/18 History [Vitamin B-12] fenofibrate nanocrystallized 48 mg PO BID 09/15/18 09/19/18 History glimepiride 1 mg PO QAM 09/15/18 09/19/18 History lisinopril 20 mg PO QAM 09/15/18 09/19/18 History metformin 1,000 mg PO BIDM 09/15/18 09/19/18 History metoprolol tartrate 100 mg PO BID 12/27/18 12/31/18 History ondansetron 4 mg PO Q6H PRN #20 tab 09/15/18 09/19/18 Rx ranitidine HCl 300 mg PO BID 09/15/18 09/19/18 History acetaminophen [Tylenol Extra 1,000 mg PO Q6H PRN 09/19/18 09/19/18 History Strength] Past Med/Surg History Medical History GERD (gastroesophageal reflux disease) Diabetes Hypertension Kidney stones Myocardial infarction Surgical History History of heart artery stent History of knee surgery History of spinal fusion Family History Other Diabetes Gallbladder disease Heart disease Hypertension Kidney disease Social History marital status: Current Living Situation: Spouse and Family current occupational status: employed Other Information That Helps Us Care for You: No Feels Safe at Home: Yes Safety Concerns: Feels Safe At This Time Smoking Status: Never smoker Do You Dip or Chew Tobacco: No Second Hand Exposure: No Tobacco Cessation Education Requested by Patient: No Hx Alcohol Use: No Hx Substance Use: No Beliefs That Will Affect Care: None Preferred Language: P[place] Communication Ability: Effective 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 Review of Systems All systems reviewed & are unremarkable except as noted in HPI & below Physical Exam 2 Vital Signs (Past 24 Hours): Last Vital Signs Temp 37.1 C 09/19/18 11:06 Pulse 89 09/19/18 12:34 Resp 20 09/19/18 12:34 BP 132/63 09/19/18 12:34 Pulse Ox 94 09/19/18 12:34 Physical Exam: General: patient resting comfortably, NAD, ill in appearance, AA&O x 4 Skin: warm, dry, intact, no rashes or lesions HEENT: NC/AT, PERRL, EOMI, anicteric sclera, conjunctiva without injection, external ear normal to inspection and nontender, nares patent, moist mucus membranes, dentition intact, no oropharyngeal lesions, neck supple, trachea midline, no LAD, no thyromegaly, no JVD Heart: +S1/S2, regular, no m/r/g Lungs: equal air entry bilaterally, coarse breath sounds anteriorly, crackles in bilateral bases, no wheeze or stridor Abd: +BS, soft, NT/ND, no masses/organomegaly/ascites Ext: warm, 2+ pulses in UE/LE bilaterally, no clubbing/cyanosis or edema Neuro: nonfocal, patient AA&O x 4, speech intact, no facial droop, moving all extremities on command with equal strength 5/5 Results & Data Laboratory Results Lab Results 09/19/18 09/19/18 Range/Units 11:44 11:44 WBC 4.48 L (4.8-10.8) K/uL RBC 4.26 L (4.7-6.1) M/uL Hgb 12.6 L (14.0-18.0) g/dL Hct 37.1 L (42-52) % MCV 87.1 (80-100) fL MCH 29.6 (25-34) pg MCHC 34.0 (32-36) g/dL RDW Std Deviation 42.2 (36.4-46.3) fL RDW Coeff of Abigail 13.1 (11.5-14.5) % Plt Count 133 (130-400) K/uL MPV 11.2 H (7.4-10.4) fL Immature Gran % (Auto) 0.2 % Neut % (Auto) 79.3 % Lymph % (Auto) 13.2 % Darke % (Auto) 7.1 % Eos % (Auto) 0.0 % Baso % (Auto) 0.2 % Immature Gran # (Auto) 0.01 (0.00-0.02) K/uL Neut # (Auto) 3.55 (1.4-6.5) K/uL Lymph # (Auto) 0.59 L (1.2-3.4) K/uL Darke # (Auto) 0.32 (0.11-0.59) K/uL Eos # (Auto) 0.00 (0-0.5) K/uL Baso # (Auto) 0.01 (0-0.2) K/uL Sodium 136 (136-145) mmol/L Potassium 3.7 (3.5-5.1) mmol/L Chloride 101 (98-107) mmol/L Carbon Dioxide 26 (21-32) mmol/L Anion Gap 9.0 (3-11) BUN 9 (7-18) mg/dl Creatinine 1.08 (0.6-1.4) mg/dl Est Cr Clr Drug Dosing Not Reportable Est GFR ( Amer) 86.6 Est GFR (Non-Af Amer) 74.7 BUN/Creatinine Ratio 8.1 L (10-20) Glucose 123 H (70-99) mg/dl Calcium 8.6 (8.5-10.1) mg/dl Total Bilirubin 0.7 (0.2-1) mg/dl AST 36 (15-37) U/L ALT 33 (12-78) U/L Alkaline Phosphatase 73 (45-117) U/L Troponin I < 0.015 (0-0.045) ng/ml Total Protein 7.2 (6.4-8.2) gm/dl Albumin 2.9 L (3.4-5.0) gm/dl Globulin 4.3 H (2.5-4.0) gm/dl Albumin/Globulin Ratio 0.7 L (0.9-2) Diagnostic Findings XR chest 1V portable CLINICAL HISTORY: flu, increasing sob, fever COMPARISON STUDY: Chest radiograph September 15, 2018. FINDINGS: Lung volumes are normal. There is a possible small left pleural effusion. Right infrahilar consolidation has developed. Left lower lung airspace opacity has resolved as well. There may be pleural vascular congestion. There is no pneumothorax. Cardiomediastinal silhouette is stable. IMPRESSION: 1. Interval development of bibasilar airspace opacities which favor pneumonia. 2. Pulmonary vascular congestion. 3. Possible small left pleural effusion. Electronically signed by: Erich Ramirez M.D. 09/19/2018 12:09 PM Code Status & VTE Plan Code Status Full VTE Prophylaxis Plan VTE Prophylaxis will be ordered: Yes Critical Care Time Critical Care Time: No _ (1) Pneumonia Aspiration pneumonia type: Laterality: bilateral Lung location: lower lobe of lung Pneumonia type: due to unspecified organism Qualified Code(s): J18.1 - Lobar pneumonia, unspecified organism (2) CAD (coronary artery disease) Coronary Disease-Associated Artery/Lesion type: minto artery [place] vs. transplanted heart: minto heart Associated angina: without angina Qualified Code(s): I25.10 - Atherosclerotic heart disease of minto coronary artery without angina pectoris (3) Diabetes Diabetes mellitus type: type 2 Diabetes mellitus termite treater helper insulin use: without termite treater helper use Diabetes mellitus complication status: without complication Qualified Code(s): E11.9 - Type 2 diabetes mellitus without complications (4) Hypertension Hypertension type: essential hypertension Qualified Code(s): I10 - Essential (primary) hypertension (5) GERD (gastroesophageal reflux disease) Esophagitis presence: esophagitis presence not specified Qualified Code(s): K21.9 - Gastro-esophageal reflux disease without esophagitis
[2018-09-19] MEDS ORDERED: SODIUM CHLORIDE 0.9% 500 ML IV SCH (15:52)
[2018-09-19] MEDS ORDERED: DEXTROSE 50% 50 ML SYRINGE IV PRN (15:52)
[2018-09-19] MEDS ORDERED: CARBOHYDRATES FOR HYPOGLYCEMIA PO PRN (15:52)
[2018-09-19] MEDS ORDERED: ONDANSETRON INJ 2 MG/ML 2 ML VIAL IV PRN (15:52)
[2018-09-19] MEDS ORDERED: ACETAMINOPHEN 325 MG TAB PO PRN (15:52)
[2018-09-19] MEDS ORDERED: GLUCOSE 10 TABS/TUBE PO PRN (15:52)
[2018-09-19] MEDS ORDERED: GLUCAGON FOR INJ 1 MG VIAL SQ PRN (15:52)
[2018-09-19] MEDS ORDERED: GLUCOSE 40% GEL 15 GM TUBE PO PRN (15:52)
[2018-09-19 16:52] LABS: Magnesium 1.6 mg/dl (1.8-2.4); Phosphorus 2.1 mg/dl (2.5-4.9)
[2018-09-19 17:00] LABS: Prothrombin Time 10.4 Seconds (9.0-12.0)
[2018-09-19] MEDS ORDERED: COUGH DROP (SUGAR FREE) LOZ 24 LOZ/1 BOX BUCCAL ONE (17:04)
[2018-09-19] MEDS: predniSONE 20 MG TAB PO SCH (17:10)
[2018-09-19] MEDS: INSULIN ASPART 100 UNITS/ML 3 ML PEN SC SCH ×2 (17:14→21:18)
[2018-09-19] MEDS ORDERED: INFLUENZA ADMINISTRATION CHARGE ONE (19:00)
[2018-09-19] MEDS ORDERED: INFLUENZA VIRUS QUAD VACCINE 0.5 ML SYR IM ONE (19:00)
[2018-09-19] MEDS: ALBUTEROL 0.5% NEB SOLN 2.5 MG/0.5 ML VIAL NEB SCH (19:05)
[2018-09-19] MEDS: ATORVASTATIN 20 MG TAB PO SCH (21:13)
[2018-09-19] MEDS: ENOXAPARIN INJ 40 MG/0.4 ML SYR SQ SCH (21:13)
[2018-09-19] MEDS: FENOFIBRATE NANOCRYSTALLIZED 48 MG TABLET PO SCH (21:15)
[2018-09-19] MEDS: BENZONATATE 100 MG CAPSULE PO SCH (21:15)
[2018-09-19] MEDS: INSULIN GLARGINE SOLOSTAR 100 UNITS/ML 3 ML PEN SC SCH (21:16)
[2018-09-19] MEDS: METOPROLOL TARTRATE 100 MG TAB PO SCH (21:42)
[2018-09-20] MEDS: ALBUTEROL 0.5% NEB SOLN 2.5 MG/0.5 ML VIAL NEB SCH ×4 (02:05→19:03)
[2018-09-20 06:13] LABS: Hematocrit (blood only) 36.4 % (42-52); Hemoglobin 12.6 g/dL (14.0-18.0); Mean Corpuscular Hgb Conc 34.6 g/dL (32-36); Mean Corpuscular Volume 86.9 fL (80-100); Mean Platelet Volume 11.4 fL (7.4-10.4); Platelet Count 162 K/uL (130-400); RDW Coefficient of Variation 13.2 % (11.5-14.5); RDW Standard Deviation 42.2 fL (36.4-46.3); Red Blood Count 4.19 M/uL (4.7-6.1); White Blood Count 4.26 K/uL (4.8-10.8)
[2018-09-20 06:55] LABS: BUN Creatinine Ratio 11.9 (10-20); Calcium 8.4 mg/dl (8.5-10.1); Creatinine Clr Calc Pharmacy 91.5 ml/min; Est GFR (African American) 89.6; Est GFR (Non-African American) 77.3; Potassium 3.9 mmol/L (3.5-5.1)
[2018-09-20 06:59] LABS: Basophils # (auto) 0.01 K/uL (0-0.2); Basophils % (auto) 0.2 %; Immature Granulocytes # (auto) 0.02 K/uL (0.00-0.02); Immature Granulocytes % (auto) 0.5 %; Lymphocytes # (auto) 0.44 K/uL (1.2-3.4); Lymphocytes % (auto) 10.3 %; Monocytes % (auto) 9.4 %; Neutrophils # (auto) 3.39 K/uL (1.4-6.5); Neutrophils % (auto) 79.6 %
[2018-09-20 08:38] LABS: Magnesium 1.9 mg/dl (1.8-2.4); Phosphorus 2.4 mg/dl (2.5-4.9)
[2018-09-20] MEDS: INSULIN ASPART 100 UNITS/ML 3 ML PEN SC SCH ×4 (08:42→21:25)
[2018-09-20] MEDS: INSULIN GLARGINE SOLOSTAR 100 UNITS/ML 3 ML PEN SC SCH ×2 (08:44→21:24)
[2018-09-20] MEDS: METOPROLOL TARTRATE 100 MG TAB PO SCH ×2 (08:45→21:22)
[2018-09-20] MEDS: cefTRIAXone SODIUM 1,000 MG in DEXTROSE 5% 50 ML IV SCH (08:46)
[2018-09-20] MEDS: FENOFIBRATE NANOCRYSTALLIZED 48 MG TABLET PO SCH ×2 (08:47→21:22)
[2018-09-20] MEDS: BENZONATATE 100 MG CAPSULE PO SCH ×3 (08:47→21:23)
[2018-09-20] MEDS: ASPIRIN 81 MG ECTAB PO SCH (08:47)
[2018-09-20] MEDS: CLOPIDOGREL BISULFATE 75 MG TAB PO SCH (08:47)
[2018-09-20] MEDS: LISINOPRIL 20 MG TAB PO SCH (08:48)
[2018-09-20] MEDS: predniSONE 20 MG TAB PO SCH (08:48)
[2018-09-20] MEDS: CYANOCOBALAMIN 500 MCG TABLET (VITAMIN B-12) PO SCH (08:48)
[2018-09-20] MEDS ORDERED: NON-FORMULARY MEDICATION (Coenzyme Q10 [Coq-10] 100 MG) PO SCH (09:00)
--- NOTE | 2018-09-20 09:20 | XRay Report ---
XR chest 2V routine CLINICAL HISTORY: Pneumonia. COMPARISON STUDY: Chest radiograph September 19, 2018. FINDINGS: There is no pneumothorax or pleural effusion. Right infrahilar opacity is noted. There is m ild left mid and lower lung airspace opacity. There is pulmonary vascular congestion. IMPRESSION: 1. Persistent, but slightly improved, bilateral airspace opacities which favor pneumonia. 2. Pulmonary vascular congestion. Electronically signed by: Erich Ramirez M.D. 09/20/2018 9:19 AM
[2018-09-20] MEDS: AZITHROMYCIN 250 MG in DEXTROSE 5% 250 ML IV SCH (09:35)
[2018-09-20] MEDS ORDERED: GUAIFENESIN/DEXTROM SYRUP 200MG/20MG 10ML UDC PO PRN (11:18)
--- NOTE | 2018-09-20 11:21 | Hospitalist Progress Note ---
Date of Service September 20, 2018 Assessment & Plan (1) Pneumonia: Patient with recent diagnosis of influenza A on 09/15, now presenting with worsening pulmonary symptoms, productive cough, fever. Chest x-ray suggestive of bibasilar airspace opacity favoring pneumonia. Repeat CXR PA/Lat on 09/20/18 with left lingula and lower lobe as well as Right infrahilar opacities Remains afebrile since admission, hemodynamically stable Is improving overall since starting on antibiotics BNP normal, PCT negative which point away from CHF or severe sepsis * Follow-up blood cultures-NGTD * sputum culture-pending * Legionella pending * continue Azithromycin and ceftriaxone for treatment of community acquired pneumonia-day#2 * continue Albuterol neb every 6 hours * will dc Prednisone as has no h/o chronic lung disease, never a smoker, and no wheezing on exam-is causing hyperglycemia * continue Tessalon Perles 3 times daily and add guaifenesin with DM for antitussives * Incentive spirometry every 2 hours while awake * Tylenol as needed for pain and fever * follow CXR to resolution in 4-6 weeks (2) Influenza A: Patient positive for influenza A on 09/15/18. No Tamiflu administered. Now out of the window for treatment. * Droplet precautions * Treatment of pneumonia as above * supportive care, tylenol for headache, etc. * flu shot ordered (3) CAD (coronary artery disease): Patient with history of CAD status post stent placement in 2008 when he suffered cardiac arrest. Presently chest pain-free. No concern for myocardial ischemia. 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 Last hemoglobin A1c 6.4 on 07/20/18. * Will hold oral agents while inpatient * continue Lantus 7 units twice daily * lower CF to 30, raise lower end of range to 100, and tighten carb ratio today to 1:15 for his Insulin sliding scale * Continue to monitor (5) Hypertension: Blood pressure presently controlled to elevated, could be due to steroids * Continue metoprolol, lisinopril (6) GERD (gastroesophageal reflux disease): Chronic. Well-controlled * Continue ranitidine twice daily (7) Dyslipidemia: continue fenofibrate and atorvastatin (8) DVT prophylaxis: Lovenox SQ Dispo-remain in hospital until BCxs neg x 48 hrs, already improved, but given underlying comorbidities, reasonable to keep here one more day and can likely go home tomorrow Subjective Pt could not get his IV pole around the bed to go to the bathroom this AM so he just had urinary incontinence. Otherwise feels his cough is improved, has some soreness in the ribs from coughing. Is bringing up clear to yellow sputum, sometimes with a pink tinge. Denies SOB or chest pain. he had 2 loose stools today. No N/V. Does have a mild GUAMAN Review of Systems All systems reviewed & are unremarkable except as noted in HPI & below Physical Exam 2 Vital Signs (Past 24 Hours): Last Vital Signs Temp 36.6 C 09/20/18 07:41 Pulse 80 09/20/18 07:41 Resp 18 09/20/18 07:41 BP 164/85 H 09/20/18 07:41 Pulse Ox 98 09/20/18 07:41 Constitutional: WD/WN, vitals as above Eyes: PERRL, conjunctivae normal, anicteric sclerae ENMT: external ear and nose normal, oropharynx normal Neck: trachea midline, no thyromegaly Respiratory: normal respiratory effort; no respiratory distress Auscultation: + crackles (at bases bilat with a few rhonchi, no wheezing at all ) Cardiovascular: RRR, no murmur, no edema Gastrointestinal (Abdomen): normal bowel sounds, soft, nontender, no hepatosplenomegaly Musculoskeletal: Extremities: extremities normal to inspection; no cyanosis and no clubbing Skin: no rashes, warm and dry Neurologic: moves all extremities and awake; no focal motor deficits Psychiatric: A+Ox3, euthymic affect Results & Data Laboratory Results 09/20/18 09/20/18 09/20/18 Range/Units 07:33 05:43 05:43 WBC (4.8-10.8) K/uL RBC (4.7-6.1) M/uL Hgb (14.0-18.0) g/dL Hct (42-52) % MCV (80-100) fL MCH (25-34) pg MCHC (32-36) g/dL RDW Std Deviation (36.4-46.3) fL RDW Coeff of Abigail (11.5-14.5) % Plt Count (130-400) K/uL MPV (7.4-10.4) fL Immature Gran % (Auto) % Neut % (Auto) % Lymph % (Auto) % [place] % (Auto) % Eos % (Auto) % Baso % (Auto) % Immature Gran # (Auto) (0.00-0.02) K/uL Neut # (Auto) (1.4-6.5) K/uL Lymph # (Auto) (1.2-3.4) K/uL [place] # (Auto) (0.11-0.59) K/uL Eos # (Auto) (0-0.5) K/uL Baso # (Auto) (0-0.2) K/uL PT (9.0-12.0) Seconds INR (0.9-1.1) Sodium (136-145) mmol/L Potassium (3.5-5.1) mmol/L Chloride (98-107) mmol/L Carbon Dioxide (21-32) mmol/L Anion Gap (3-11) BUN (7-18) mg/dl Creatinine (0.6-1.4) mg/dl Est Cr Clr Drug Dosing Est GFR ( Amer) Est GFR (Non-Af Amer) BUN/Creatinine Ratio (10-20) Glucose (70-99) mg/dl POC Glucose 237 H (70-99) Calcium (8.5-10.1) mg/dl Phosphorus 2.4 L (2.5-4.9) mg/dl Magnesium 1.9 (1.8-2.4) mg/dl Total Bilirubin (0.2-1) mg/dl AST (15-37) U/L ALT (12-78) U/L Alkaline Phosphatase (45-117) U/L Troponin I (0-0.045) ng/ml NT-Pro-B Natriuret Pep (0-900) pg/ml Total Protein (6.4-8.2) gm/dl Albumin (3.4-5.0) gm/dl Globulin (2.5-4.0) gm/dl Albumin/Globulin Ratio (0.9-2) Procalcitonin (0-0.5) ng/ml Hepatitis C Ab Screen Neg (Neg) Urine Legionella Ag 09/20/18 09/20/18 09/19/18 Range/Units 05:43 05:43 20:20 WBC 4.26 L (4.8-10.8) K/uL RBC 4.19 L (4.7-6.1) M/uL Hgb 12.6 L (14.0-18.0) g/dL Hct 36.4 L (42-52) % MCV 86.9 (80-100) fL MCH 30.1 (25-34) pg MCHC 34.6 (32-36) g/dL RDW Std Deviation 42.2 (36.4-46.3) fL RDW Coeff of Abigail 13.2 (11.5-14.5) % Plt Count 162 (130-400) K/uL MPV 11.4 H (7.4-10.4) fL Immature Gran % (Auto) 0.5 % Neut % (Auto) 79.6 % Lymph % (Auto) 10.3 % [place] % (Auto) 9.4 % Eos % (Auto) 0.0 % Baso % (Auto) 0.2 % Immature Gran # (Auto) 0.02 (0.00-0.02) K/uL Neut # (Auto) 3.39 (1.4-6.5) K/uL Lymph # (Auto) 0.44 L (1.2-3.4) K/uL [place] # (Auto) 0.40 (0.11-0.59) K/uL Eos # (Auto) 0.00 (0-0.5) K/uL Baso # (Auto) 0.01 (0-0.2) K/uL PT (9.0-12.0) Seconds INR (0.9-1.1) Sodium 137 (136-145) mmol/L Potassium 3.9 (3.5-5.1) mmol/L Chloride 105 (98-107) mmol/L Carbon Dioxide 24 (21-32) mmol/L Anion Gap 8.0 (3-11) BUN 12 (7-18) mg/dl Creatinine 1.05 (0.6-1.4) mg/dl Est Cr Clr Drug Dosing 91.5 Est GFR ( Amer) 89.6 Est GFR (Non-Af Amer) 77.3 BUN/Creatinine Ratio 11.9 (10-20) Glucose 224 H (70-99) mg/dl POC Glucose (70-99) Calcium 8.4 L (8.5-10.1) mg/dl Phosphorus (2.5-4.9) mg/dl Magnesium (1.8-2.4) mg/dl Total Bilirubin (0.2-1) mg/dl AST (15-37) U/L ALT (12-78) U/L Alkaline Phosphatase (45-117) U/L Troponin I (0-0.045) ng/ml NT-Pro-B Natriuret Pep (0-900) pg/ml Total Protein (6.4-8.2) gm/dl Albumin (3.4-5.0) gm/dl Globulin (2.5-4.0) gm/dl Albumin/Globulin Ratio (0.9-2) Procalcitonin (0-0.5) ng/ml Hepatitis C Ab Screen (Neg) Urine Legionella Ag Pending 09/19/18 09/19/18 09/19/18 Range/Units 20:11 16:27 11:53 WBC (4.8-10.8) K/uL RBC (4.7-6.1) M/uL Hgb (14.0-18.0) g/dL Hct (42-52) % MCV (80-100) fL MCH (25-34) pg MCHC (32-36) g/dL RDW Std Deviation (36.4-46.3) fL RDW Coeff of Abigail (11.5-14.5) % Plt Count (130-400) K/uL MPV (7.4-10.4) fL Immature Gran % (Auto) % Neut % (Auto) % Lymph % (Auto) % [place] % (Auto) % Eos % (Auto) % Baso % (Auto) % Immature Gran # (Auto) (0.00-0.02) K/uL Neut # (Auto) (1.4-6.5) K/uL Lymph # (Auto) (1.2-3.4) K/uL [place] # (Auto) (0.11-0.59) K/uL Eos # (Auto) (0-0.5) K/uL Baso # (Auto) (0-0.2) K/uL PT 10.4 (9.0-12.0) Seconds INR 1.0 (0.9-1.1) Sodium (136-145) mmol/L Potassium (3.5-5.1) mmol/L Chloride (98-107) mmol/L Carbon Dioxide (21-32) mmol/L Anion Gap (3-11) BUN (7-18) mg/dl Creatinine (0.6-1.4) mg/dl Est Cr Clr Drug Dosing Est GFR ( Amer) Est GFR (Non-Af Amer) BUN/Creatinine Ratio (10-20) Glucose (70-99) mg/dl POC Glucose 174 H 107 H (70-99) Calcium (8.5-10.1) mg/dl Phosphorus (2.5-4.9) mg/dl Magnesium (1.8-2.4) mg/dl Total Bilirubin (0.2-1) mg/dl AST (15-37) U/L ALT (12-78) U/L Alkaline Phosphatase (45-117) U/L Troponin I (0-0.045) ng/ml NT-Pro-B Natriuret Pep (0-900) pg/ml Total Protein (6.4-8.2) gm/dl Albumin (3.4-5.0) gm/dl Globulin (2.5-4.0) gm/dl Albumin/Globulin Ratio (0.9-2) Procalcitonin (0-0.5) ng/ml Hepatitis C Ab Screen (Neg) Urine Legionella Ag 09/19/18 09/19/18 09/19/18 Range/Units 11:53 11:44 11:44 WBC (4.8-10.8) K/uL RBC (4.7-6.1) M/uL Hgb (14.0-18.0) g/dL Hct (42-52) % MCV (80-100) fL MCH (25-34) pg MCHC (32-36) g/dL RDW Std Deviation (36.4-46.3) fL RDW Coeff of Abigail (11.5-14.5) % Plt Count (130-400) K/uL MPV (7.4-10.4) fL Immature Gran % (Auto) % Neut % (Auto) % Lymph % (Auto) % [place] % (Auto) % Eos % (Auto) % Baso % (Auto) % Immature Gran # (Auto) (0.00-0.02) K/uL Neut # (Auto) (1.4-6.5) K/uL Lymph # (Auto) (1.2-3.4) K/uL [place] # (Auto) (0.11-0.59) K/uL Eos # (Auto) (0-0.5) K/uL Baso # (Auto) (0-0.2) K/uL PT (9.0-12.0) Seconds INR (0.9-1.1) Sodium 136 (136-145) mmol/L Potassium 3.7 (3.5-5.1) mmol/L Chloride 101 (98-107) mmol/L Carbon Dioxide 26 (21-32) mmol/L Anion Gap 9.0 (3-11) BUN 9 (7-18) mg/dl Creatinine 1.08 (0.6-1.4) mg/dl Est Cr Clr Drug Dosing Not Reportable Est GFR ( Amer) 86.6 Est GFR (Non-Af Amer) 74.7 BUN/Creatinine Ratio 8.1 L (10-20) Glucose 123 H (70-99) mg/dl POC Glucose (70-99) Calcium 8.6 (8.5-10.1) mg/dl Phosphorus 2.1 L (2.5-4.9) mg/dl Magnesium 1.6 L (1.8-2.4) mg/dl Total Bilirubin 0.7 (0.2-1) mg/dl AST 36 (15-37) U/L ALT 33 (12-78) U/L Alkaline Phosphatase 73 (45-117) U/L Troponin I < 0.015 (0-0.045) ng/ml NT-Pro-B Natriuret Pep 308 (0-900) pg/ml Total Protein 7.2 (6.4-8.2) gm/dl Albumin 2.9 L (3.4-5.0) gm/dl Globulin 4.3 H (2.5-4.0) gm/dl Albumin/Globulin Ratio 0.7 L (0.9-2) Procalcitonin 0.06 (0-0.5) ng/ml Hepatitis C Ab Screen (Neg) Urine Legionella Ag 09/19/18 Range/Units 11:44 WBC 4.48 L (4.8-10.8) K/uL RBC 4.26 L (4.7-6.1) M/uL Hgb 12.6 L (14.0-18.0) g/dL Hct 37.1 L (42-52) % MCV 87.1 (80-100) fL MCH 29.6 (25-34) pg MCHC 34.0 (32-36) g/dL RDW Std Deviation 42.2 (36.4-46.3) fL RDW Coeff of Abigail 13.1 (11.5-14.5) % Plt Count 133 (130-400) K/uL MPV 11.2 H (7.4-10.4) fL Immature Gran % (Auto) 0.2 % Neut % (Auto) 79.3 % Lymph % (Auto) 13.2 % [place] % (Auto) 7.1 % Eos % (Auto) 0.0 % Baso % (Auto) 0.2 % Immature Gran # (Auto) 0.01 (0.00-0.02) K/uL Neut # (Auto) 3.55 (1.4-6.5) K/uL Lymph # (Auto) 0.59 L (1.2-3.4) K/uL [place] # (Auto) 0.32 (0.11-0.59) K/uL Eos # (Auto) 0.00 (0-0.5) K/uL Baso # (Auto) 0.01 (0-0.2) K/uL PT (9.0-12.0) Seconds INR (0.9-1.1) Sodium (136-145) mmol/L Potassium (3.5-5.1) mmol/L Chloride (98-107) mmol/L Carbon Dioxide (21-32) mmol/L Anion Gap (3-11) BUN (7-18) mg/dl Creatinine (0.6-1.4) mg/dl Est Cr Clr Drug Dosing Est GFR ( Amer) Est GFR (Non-Af Amer) BUN/Creatinine Ratio (10-20) Glucose (70-99) mg/dl POC Glucose (70-99) Calcium (8.5-10.1) mg/dl Phosphorus (2.5-4.9) mg/dl Magnesium (1.8-2.4) mg/dl Total Bilirubin (0.2-1) mg/dl AST (15-37) U/L ALT (12-78) U/L Alkaline Phosphatase (45-117) U/L Troponin I (0-0.045) ng/ml NT-Pro-B Natriuret Pep (0-900) pg/ml Total Protein (6.4-8.2) gm/dl Albumin (3.4-5.0) gm/dl Globulin (2.5-4.0) gm/dl Albumin/Globulin Ratio (0.9-2) Procalcitonin (0-0.5) ng/ml Hepatitis C Ab Screen (Neg) Urine Legionella Ag _ (1) Diabetes Diabetes mellitus complication status: with hyperglycemia Diabetes mellitus [employer] insulin use: without [employer] use Diabetes mellitus type: type 2 Qualified Code(s): E11.65 - Type 2 diabetes mellitus with hyperglycemia (2) CAD (coronary artery disease) Associated angina: without angina Coronary Disease-Associated Artery/Lesion type: [place] artery [place] vs. transplanted heart: [place] heart Qualified Code (s): I25.10 - Atherosclerotic heart disease of [place] coronary artery without angina pectoris (3) GERD (gastroesophageal reflux disease) Esophagitis presence: esophagitis presence not specified Qualified Code(s): K21.9 - Gastro-esophageal reflux disease without esophagitis (4) Hypertension Hypertension type: essential hypertension Qualified Code(s): I10 - Essential (primary) hypertension (5) Pneumonia Aspiration pneumonia type: Laterality: bilateral Lung location: lower lobe of lung Pneumonia type: due to unspecified organism Qualified Code(s): J18.1 - Lobar pneumonia, unspecified organism
[2018-09-20] MEDS: ATORVASTATIN 20 MG TAB PO SCH (21:23)
[2018-09-20] MEDS: ENOXAPARIN INJ 40 MG/0.4 ML SYR SQ SCH (21:27)
[2018-09-21] MEDS: ALBUTEROL 0.5% NEB SOLN 2.5 MG/0.5 ML VIAL NEB SCH ×2 (02:06→05:29)
[2018-09-21] MEDS: cefTRIAXone SODIUM 1,000 MG in DEXTROSE 5% 50 ML IV SCH (08:36)
[2018-09-21] MEDS: METOPROLOL TARTRATE 100 MG TAB PO SCH (08:36)
[2018-09-21] MEDS: LISINOPRIL 20 MG TAB PO SCH (08:36)
[2018-09-21] MEDS: INSULIN GLARGINE SOLOSTAR 100 UNITS/ML 3 ML PEN SC SCH (08:37)
[2018-09-21] MEDS: FENOFIBRATE NANOCRYSTALLIZED 48 MG TABLET PO SCH (08:37)
[2018-09-21] MEDS: CYANOCOBALAMIN 500 MCG TABLET (VITAMIN B-12) PO SCH (08:37)
[2018-09-21] MEDS: BENZONATATE 100 MG CAPSULE PO SCH (08:37)
[2018-09-21] MEDS: ASPIRIN 81 MG ECTAB PO SCH (08:37)
[2018-09-21] MEDS: INSULIN ASPART 100 UNITS/ML 3 ML PEN SC SCH (08:39)
[2018-09-21] MEDS: CLOPIDOGREL BISULFATE 75 MG TAB PO SCH (08:39)
[2018-09-21] MEDS: AZITHROMYCIN 250 MG in DEXTROSE 5% 250 ML IV SCH (08:39)
--- NOTE | 2018-09-21 10:12 | Discharge Summary ---
Date of Service date of admission - September 19, 2018 date of discharge - September 21, 2018 Admission HPI Per Admitting Provider Patient is a 58-year-old male with history of diabetes, hypertension, CAD status post stent in 2008 presenting with worsening respiratory complaints. Patient was seen in the ER on 09/15/18 complaining of 2 days of flulike symptoms to include fever, body aches, cough as well as nausea and diarrhea. He tested positive for influenza A at that time. He was discharged home with an albuterol inhaler and Zofran as needed. Patient did not take Tamiflu. Patient did not receive a flu vaccine this year. + Sick contactsson and with the flu as well. No recent travel. Patient reports that his symptoms have progressed since then. Still with daily fevers, last one this morning recorded at 101.6. Patient also reports worsening shortness of breath, wheeze, cough productive for purulent green sputum as well as body aches. Patient is still having watery diarrhea as well. He reports decreased oral intake as well as decreased urine output. He states he is unable to take a deep breath and has some mild chest pain associated with his cough. Patient denies palpitations, dizziness, presyncope, abdominal pain, dysuria, numbness/weakness. ER course: Albuterol neb, azithromycin 500 mg, ceftriaxone 1 g, Toradol Principal Diagnosis Influenza A infection with complicating b/l pneumonia Discharge Exam Constitutional well developed, well nourished and + obese; no acute distress and not ill appearing ENMT external ear and nose normal, oropharynx normal Respiratory Auscultation: + rales (minimal b/l bases); no rhonchi and no wheezes Cardiovascular RRR, no murmur, no edema Heart Sounds: normal S1 and normal S2 Vessels: posterior tibial pulses present and dorsalis pedis pulses present; no JVD Gastrointestinal (Abdomen) normal bowel sounds, soft, nontender, no hepatosplenomegaly Musculoskeletal no cyanosis or clubbing, extremities motor strength 5/5 Psychiatric A+Ox3, euthymic affect Discharge Data Allergies Allergy/AdvReac Type Severity Reaction Status Date / Time Iodinated Contrast- Oral and Allergy Unknown HIVES Verified 09/19/18 11:28 IV Dye Hospital Course (1) Influenza A: By the time the patient was admitted he was well out of the "window" for administration of tamiflu. Therefore, he was simply given supportive care. Fortunately he remained hemodynamically stable his entire stay with no O2 requirement and negative blood/sputum cultures. (2) Pneumonia: The patient was treated for b/l community-acquired pneumonia with IV antibiotics. His pneumonia was a complication of his influenza A infection. Blood and sputum cultures were negative while hospitalized. He will complete 4 more days of levaquin by mouth after discharge. (3) CAD (coronary artery disease): No ischemic symptoms during his stay. He remains on aspirin, statin, plavix, beta [place], and PABLO. (4) Diabetes: Labile during his stay but glycemic control was acceptable by the time of discharge. He will resume his oral medications at discharge. (5) Hypertension: Controlled while here. (6) GERD (gastroesophageal reflux disease): Remains on H2 [place]. (7) Dyslipidemia: Remains on statin agent and fenofibrate. Total Time Total Time Spent Total Time Spent (In Minutes): 40 Total Time Includes: Examination of the Patient, Discharge Planning and Medication Reconciliation Discharge Plan Discharge Items Patient Disposition: Home - Self-Care Reason For Visit: PNEUMONIA Discharge Diagnosis: pneumonia in the setting of influenza A infection Discharge Goals: Diagnostic testing and Therapeutic intervention Activity: Resume your previous activity Activity Comment: as tolerated Non-emergency contact: Primary Care Provider Call non-emergency contact if: you have any medication questions, your symptoms worsen and your temperature is above 100.5 Follow-up/Referrals: Andrew Bingham MD [Primary Care Provider] - 09/28/18 1:30 pm (Please, follow up with Dr. Bingham on WednesdaySeptember 28 at 1:30 pm. *If you need to change this appointment, call the office at [phone].) Diet: Carb Consistent or DM2 Addtl Provider Instructions: You were treated for influenza type A infection as well as pneumonia. You improved with antibiotics for the pneumonia. At this time we recommend the following - 1. FOUR more days of oral antibiotics for your pneumonia. Start this TOMORROW , 09/22/18. 2. For cough - * may use [id number] [id number] 1200mg up to twice a day as needed/desired * tessalon pearles 100mg every 8 hours as needed for cough (prescription given) * combivent inhaler -- 1 puff every 6 hours as needed for cough/wheezing ( prescription provided) 3. For chest discomfort/aches/pain - tylenol or motrin as needed/desired 4. For prevention of diarrhea - saccharomyces 1 capsule once daily for 1 week; start this today You are no longer contagious from a FLU standpoint; you do not need to wear a mask or take any other special precautions. Recommend that you receive your flu shot at the time of your hospital follow-up appointment. Follow-up - see separate section. Return to [facility] if - * you have persistent fevers over 100.5 degrees * you have worsening shortness of breath * you have severe chest pain * you develop severe diarrhea * any other concerns Prescriptions: New benzonatate 100 mg capsule 100 mg PO TID PRN (Reason: cough) Qty: 30 RF: 0 ipratropium-albuterol [Combivent Respimat] 20-100 mcg/actuation mist 1 puffs INH Q6H PRN (Reason: cough or wheeze) Qty: 4 RF: 0 levofloxacin 750 mg tablet 750 mg PO DAILY 4 Days Qty: 4 RF: 0 Saccharomyces boulardii 250 mg capsule 250 mg PO DAILY 7 Days Qty: 7 RF: 0 Continue atorvastatin 20 mg tablet 20 mg PO HS RF: 0 metoprolol tartrate 100 mg tablet 100 mg PO BID RF: 0 ranitidine HCl 300 mg tablet 300 mg PO BID RF: 0 lisinopril 20 mg tablet 20 mg PO QAM RF: 0 clopidogrel 75 mg tablet 75 mg PO QAM RF: 0 aspirin 81 mg Tablet,Delayed Release (Dr/Ec) 81 mg PO QAM RF: 0 glimepiride 1 mg tablet 1 mg PO QAM RF: 0 metformin 500 mg tablet extended release 24 hr 1,000 mg PO BIDM RF: 0 coenzyme Q10 [CoQ-10] 100 mg Capsule 100 mg PO QAM RF: 0 fenofibrate nanocrystallized 48 mg tablet 48 mg PO BID RF: 0 cholecalciferol (vitamin D3) 50,000 unit capsule 50,000 units PO WK RF: 0 cyanocobalamin (vitamin B-12) [Vitamin B-12] 1,000 mcg Tablet 1,000 mcg PO QAM RF: 0 ondansetron 4 mg tablet,disintegrating 4 mg PO Q6H PRN (Reason: nausea and vomiting) Qty: 20 RF: 0 acetaminophen [Tylenol Extra Strength] 500 mg Tablet 1,000 mg PO Q6H PRN (Reason: pain/fever) RF: 0 Visit Report Forms: My [facility] Stand-Alone Forms: My [facility], Work/School Release (Inpt) Discharge Orders: Discharge Order (Routine); Ordered 09/21/18 Ordered By: Aiden Herman Admission Data Admit Date/Time: 09/19/18 14:25 Attending Provider: Aiden Herman Admit Provider: Fern Dietz Primary Care Provider: Andrew Bingham Service: Medical Other Interventions: Discharge Summary Assessment (RN) Last Done: 09/21/18 10:04 Pending Studies at Discharge: No DC Date/Time DO NOT enter until pt leaves facility: 09/21/18 12:34
== END 2018-09-21 12:34 | disposition home or self-care (01) | DRG 195 ==
LOC: ED 11:05 → SUATTDRO 14:25 → 2W 14:25
DX: Z79.84 Long term (current) use of oral hypoglycemic drugs; J10.00 Influenza due to other identified influenza virus with unspecified type of pneumonia; E78.5 Hyperlipidemia, unspecified; I10 Essential (primary) hypertension; T38.0X5A Adverse effect of glucocorticoids and synthetic analogues, initial encounter; E11.65 Type 2 diabetes mellitus with hyperglycemia; I25.10 Atherosclerotic heart disease of native coronary artery without angina pectoris; Z79.02 Long term (current) use of antithrombotics/antiplatelets; Z79.82 Long term (current) use of aspirin; Z79.899 Other long term (current) drug therapy; K21.9 Gastro-esophageal reflux disease without esophagitis